=== PATIENT | male | born 1955 | race Hispanic/Latino ===

== ENCOUNTER 2025-09-17 06:52 | Day surgery (SDC) | payer MEDICARE ==
[~2025-09-17] VITALS: Ht 180.3 cm; Wt 83.0 kg
[2025-09-17] VITALS (16 sets, daily range): BP systolic 104–122; BP diastolic 56–76; PULSE 50–78; RESP 14–18; TEMP 96.9–97.9
[~2025-09-17 06:52] MED LIST: EMPA25TA PO; LISI5TAB21 PO
[2025-09-17] MEDS ORDERED: BOTULINUM TOXIN TYPE A 100 UNITS/VIAL INJ ONE (07:00)
[2025-09-17] MEDS ORDERED: NEBI2.5T PO (07:41)
[2025-09-17] MEDS: 0.9%NACL 1000ML 1,000 ML IV ONE (07:45)
[2025-09-17] MEDS ORDERED: LIDOCAINE PF 100MG/5ML (2%) SYRINGE 5ML ONE (09:43)
[2025-09-17] MEDS ORDERED: SUCCINYLCHOLINE CHLORIDE 20 MG/ML 10 ML VIAL ONE (09:49)
[2025-09-17] MEDS ORDERED: NEOSTIGMINE METHYLSULFATE 1MG/ML IV ONE (10:15)
[2025-09-17] MEDS ORDERED: GLYCOPYRROLATE 0.2 MG/ML 5 ML VIAL ONE (10:15)
== END 2025-09-17 12:00 | disposition home or self-care (01) ==
LOC: DAH 06:52
PROVIDERS: ATTEND Surgery
DX: R13.10 Dysphagia, unspecified (principal); K22.0 Achalasia of cardia; T18.128A Food in esophagus causing other injury, initial encounter; W44.F1XA Bezoar entering into or through a natural orifice, initial encounter; K29.60 Other gastritis without bleeding; K22.89 Other specified disease of esophagus; E11.9 Type 2 diabetes mellitus without complications; Z98.890 Other specified postprocedural states
CPT/HCPCS: 82948 ×2; 43236; 43239; 43247; J1100; J0330; J7030; J3490 ×2; J2003; J2704 ×2; J2405; J2710; J0585; A4215 ×2; A4223; A4657 ×2; A7002; A4222; A4221; A4663; A4606